=== PATIENT | male | born 1970 | race Caucasian/White ===

== ENCOUNTER 2018-06-25 11:05 | Emergency (ER) | payer OTHER ==
[~2018-06-25] VITALS: Ht 182.9 cm; Wt 113.4 kg
== END 2018-06-25 12:28 | disposition home or self-care (01) ==
LOC: ED 11:05
PROC: 0HQGXZZ Repair Left Hand Skin, External Approach (ICD-10-PCS; principal; 2018-06-25)
DX: S60.552A Superficial foreign body of left hand, initial encounter (principal); S61.412A Laceration without foreign body of left hand, initial encounter; W22.8XXA Striking against or struck by other objects, initial encounter; Z23 Encounter for immunization
CPT/HCPCS: 12002; 73130; 90471; 90715; 99283

== ENCOUNTER 2018-06-27 16:46 | Emergency (ER) | payer OTHER ==
[~2018-06-27] VITALS: Ht 182.9 cm; Wt 113.4 kg
[2018-06-27] MEDS ORDERED: AUGMENTIN 875-1 EACH PO (17:10)
== END 2018-06-27 17:16 | disposition home or self-care (01) ==
LOC: ED 16:46
DX: S61.412D Laceration without foreign body of left hand, subsequent encounter (principal)
CPT/HCPCS: 99282

== ENCOUNTER 2019-06-24 08:28 | Emergency (ER) | payer OTHER ==
[~2019-06-24] VITALS: Ht 182.9 cm; Wt 113.4 kg
[~2019-06-24 08:28] MED LIST: AUGMENTIN 875-1 EACH PO
[2019-06-24] MEDS ORDERED: KEFLEX500 MG PO (09:33)
[2019-06-24] MEDS ORDERED: NORCO 7.5-3251 EACH PO (09:33)
== END 2019-06-24 09:55 | disposition home or self-care (01) ==
LOC: ED 08:28
PROC: 0HQQXZZ Repair Finger Nail, External Approach (ICD-10-PCS; principal; 2019-06-24)
DX: S62.665A Nondisplaced fracture of distal phalanx of left ring finger, initial encounter for closed fracture (principal); S61.315A Laceration without foreign body of left ring finger with damage to nail, initial encounter; W23.0XXA Caught, crushed, jammed, or pinched between moving objects, initial encounter
CPT/HCPCS: 11760; 73140; 99283-25

== ENCOUNTER 2021-03-25 20:56 | Emergency (ER) | payer OTHER ==
[~2021-03-25] VITALS: Ht 182.9 cm; Wt 113.4 kg
[~2021-03-25 20:56] MED LIST changes: +KEFLEX500 MG PO; +NORCO 7.5-3251 EACH PO
[2021-03-25] MEDS ORDERED: HYDROCODON-ACE1 EA10 PO (22:13)
== END 2021-03-25 22:31 | disposition home or self-care (01) ==
LOC: ED 20:56
DX: S63.502A Unspecified sprain of left wrist, initial encounter (principal); W22.8XXA Striking against or struck by other objects, initial encounter
CPT/HCPCS: 29125; 73110; 99283-25

== ENCOUNTER 2022-03-14 07:13 | Day surgery (SDC) | payer OTHER ==
[~2022-03-14] VITALS: Ht 188 cm; Wt 104.3 kg
[~2022-03-14 07:13] MED LIST changes: +HYDROCODON-ACE1 EA10 PO
--- NOTE | 2022-03-14 09:36 | NUR ---
03/14/22 0936 Chasity Shay 0910 PATIENT DROWSY. AWAKES TO VERBAL STIMULI. PATIENT DENIES ANY PAIN OR NAUSEA. PATIENT BREATHING EQUAL AND UNLABORED ON 3 LITERS SIMPLE MASK. EDUCATED ON PASSING GAS.
--- NOTE | 2022-03-14 17:32 | OR ---
[facility] [address] [place], [place] [address] Signed DATE OF OPERATION: 03/14/2022 SURGEON: Sukumar Tinoco MD PREOPERATIVE DIAGNOSIS: Screening. POSTOPERATIVE DIAGNOSIS: Moderate internal hemorrhoids. PROCEDURE: Colonoscopy with hot biopsy. ESTIMATED BLOOD LOSS: None. INDICATIONS: Iesha is a 52-year-old gentleman asked to see me for his initial screening colonoscopy. He has no lower GI complaints. There is no family history of colon cancer or polyps. In the office, I gave him a pamphlet on colonoscopy. He understands the nature of the test. There is risk including, but not limited to gas bloating, crampy abdominal pain, bleeding, perforation requiring surgery, and missed diagnosis. We also discussed the need for IV conscious sedation. He had expressed understanding and wished to proceed. DESCRIPTION OF PROCEDURE: Iesha was taken into our endoscopy suite and placed in the left lateral decubitus position. He was given a total of 9 mg of Versed and 100 mcg of fentanyl to cover the case. A digital rectal exam was performed, not much in the way of external hemorrhoids. He had good sphincter tone. Mild induration to the prostate gland. The adult colonoscope had been introduced, advanced all around into the cecum under direct visualization of camera without difficulty. It took a little extra sedation in order to advance the scope. His prep was quite good. We could easily see the appendiceal orifice and ileocecal valve. Unfortunately, we could not capture pictures on our computer today. The scope was then slowly withdrawn. We saw no pathology throughout his entire colon or rectum. Upon retroflexion of scope, he does have a moderate-sized internal hemorrhoid columns. After this, the gas was suctioned out, the colonoscope removed. Iesha tolerated the procedure quite well. RECOMMENDATIONS: Iesha can return in 10 years for repeat screening colonoscopy. Electronically Signed By: SUKUMAR TINOCO MD 03/14/22 1875 PATIENT NAME: IESHA GARCIA OPERATIVE REPORT DATE OF : 68 REPORT #: [id number] PHYSICIAN: SUKUMAR TINOCO MD PCP: VANESSA JIN REPORT IS CONFIDENTIAL AND NOT TO BE RELEASED WITHOUT AUTHORIZATION [address] [address] Signed Sukumar Tinoco MD ALB/MODL /[id number] cc: Patient Chart MD Vanessa Acosta PA-C Copies: SUKUMAR TINOCO MD, ERIKA PAC ~ Electronically Signed By: SUKUMAR TINOCO MD 03/14/22 1732 PATIENT NAME: IESHA GARCIA OPERATIVE REPORT DATE OF : 68 REPORT #: [id number] PHYSICIAN: SUKUMAR TINOCO MD PCP: VANESSA JIN PAC REPORT IS CONFIDENTIAL AND NOT TO BE RELEASED WITHOUT AUTHORIZATION
== END 2022-03-14 10:05 | disposition home or self-care (01) ==
LOC: OPS 07:13 → DS 07:13 → OPS 08:15
PROVIDERS: ATTEND Colon & Rectal Surgery
PROC: 0DJD8ZZ Inspection of Lower Intestinal Tract, Via Natural or Artificial Opening Endoscopic (ICD-10-PCS; principal; 2022-03-14 08:15)
DX: Z12.11 Encounter for screening for malignant neoplasm of colon (principal); K64.8 Other hemorrhoids; J45.909 Unspecified asthma, uncomplicated; E78.5 Hyperlipidemia, unspecified; E66.9 Obesity, unspecified
CPT/HCPCS: 99153; G0500; J2250; J3010; J7121

== ENCOUNTER 2024-08-27 07:26 | Day surgery (SDC) | payer OTHER ==
[~2024-08-27] VITALS: Ht 182.9 cm; Wt 93.6 kg
[~2024-08-27 07:26] MED LIST changes: +CENTRUM ULTRA1 EAC1 PO; +IBLOOD GLUCOSE TEST STRIP 1 EA TEST VI PRN; +LACTATED RINGER'S 1,000 ML IV SCH; +LIDOCAINE HCL 1% 5 ML SDV INJ ONE; +LIDOCAINE HCL 4% 50 ML BTL TOP SCH; +MULTI VITAMIN1 EACH PO
--- NOTE | 2024-08-27 07:36 | NUR ---
PT NOT AVAILABLE FOR VISIT. PROVIDED PRAYER.
[2024-08-27 07:39] VITALS: BP 131/67
[2024-08-27] MEDS ORDERED: MIDAZOLAM HCL 5 MG/5 ML VIAL ONE (08:34)
[2024-08-27] MEDS ORDERED: fentaNYL citrate 100 MCG/2 ML VIAL ONE (08:34)
--- NOTE | 2024-08-27 09:20 | NUR ---
08/27/24 0920 Arina Arauz 0910 EASILY AWAKENED. DENIES C/O. REPS EVEN UNLABORED
[2024-08-27 09:32] VITALS: BP 110/67
--- NOTE | 2024-08-31 11:31 | OR ---
[facility] [address] [place], [place] [address] Signed DATE OF OPERATION: 08/27/2024 SURGEON: Rosmery Rojas MD PREOPERATIVE DIAGNOSES: 1. Cervical dysphagia. 2. Recent finding of Sjogren syndrome. 3. Upper gastrointestinal describing Schatzki ring, small hiatal hernia and prominent cricopharyngeal bar. POSTOPERATIVE DIAGNOSES: 1. Normal-appearing esophagus. 2. Mild antral gastritis and duodenitis. PROCEDURE: Esophagogastroduodenoscopy with biopsy. ANESTHESIA: Intravenous sedation; fentanyl 100 mcg and Versed 4 mg. INDICATION: This 54-year-old white man is a patient of Raul Serna and presented with cervical dysphagia. He had findings of extremely dry mouth, dry eyes, and other complaints suggestive of Sjogren syndrome. Sjogren serologic testing was undertaken which was markedly positive. A video esophagram was additionally performed, which showed no nicolas aspiration into the trachea, though some pooling of contrast in the area of the vallecula, a prominent cricopharyngeal bar and a small hiatal hernia with Schatzki's ring. He is admitted to undergo upper endoscopy at this time to assess for possible benefit of dilation, assess for other abnormalities including eosinophilic esophagitis that may contribute to his cervical dysphagia. He understands the risk of upper endoscopy including but not limited to bleeding, infection, and perforation and wished to proceed. FINDINGS: The vocal cords appeared normal, though there was indeed some pooling of secretions in the vallecula. Esophagus itself appeared normal. There was no evidence of stricture, Schneider's epithelium, neoplasm or felinization. The stomach itself was reasonably normal. Flap valve was reasonably intact. There was some prepyloric antral gastritis and bulbar duodenitis also. The 2nd and 3rd portions of the duodenum were normal. CLOtest was -15 minutes post procedure. Electronically Signed By: ROSMERY RJOAS MD 08/31/24 1131 PATIENT NAME: IESHA GARCIA OPERATIVE REPORT DATE OF : 68 REPORT #: [id number] PHYSICIAN: ROSMERY ROJAS MD PCP: RAUL SERNA PAC REPORT IS CONFIDENTIAL AND NOT TO BE RELEASED WITHOUT AUTHORIZATION [facility] [address] [place], [place] [address] Signed DESCRIPTION OF PROCEDURE: The patient was brought to the endoscopy suite and given lidocaine topical hypopharyngeal anesthesia and placed in lateral decubitus position. He was given intravenous sedation to the point of slurred speech and nystagmus with full cardiopulmonary monitoring. A bite block was placed. An Olympus video upper endoscope was passed in the hypopharynx. The vocal cords generally appeared normal. There was some pooling of secretions in the vallecula. Scope was advanced to the esophagus, throughout its length it appeared normal. The scope was passed into the stomach. There was a small amount of bile within it, but not much. There was no sign of diffuse gastritis. Antral motility was normal. Rugal folds were normal. The pylorus was mildly inflamed as was the prepyloric antrum. The scope was passed into the duodenum. The second and third portions were normal. The bulbar portion was mildly inflamed. There was no sign of ulceration. Biopsies were taken of the 2nd and 3rd portion as well as the bulbar portion. The scope was withdrawn and biopsies were taken of prepyloric antrum. CLOtest biopsies were obtained as well later and found to be -20 minutes post procedure. Retroflexed view showed a reasonably intact flap valve. Scope was withdrawn and biopsies taken of the distal esophagus and mid esophagus. The scope was carefully withdrawn and removed. CONCLUDING DIAGNOSES: No evidence of esophageal stricture. Cricopharyngeal bar not evident on endoscopic evaluation, but no associated stricture or neoplasm. PLAN: Given his underlying Sjogren syndrome and cervical dysphagia, we will recommend omeprazole 20 mg daily as well as prescription for XyiliMelts to be taken with meals. He should maintain a soft diet generally, intake frequent sips of water and with meals. We will see him back in the office in 4 to 6 weeks in follow up. MD NAUN Ann/AIDEL /[id number] Electronically Signed By: ROSMERY ROJAS MD 08/31/24 1131 PATIENT NAME: IESHA GARCIA OPERATIVE REPORT DATE OF : 68 REPORT #: [id number] PHYSICIAN: ROSMERY ROJAS MD PCP: RAUL SERNA PAC REPORT IS CONFIDENTIAL AND NOT TO BE RELEASED WITHOUT AUTHORIZATION [facility] [address] [place] [id number] Signed cc: Raul Serna PA-C Copies: RAUL SERNA ~ Electronically Signed By: ROSMERY ROJAS MD 08/31/24 1131 PATIENT NAME: GARCIAIESHA OPERATIVE REPORT DATE OF : 68 REPORT #: [id number] PHYSICIAN: ROSMERY ROJAS MD PCP: RAUL SERNA REPORT IS CONFIDENTIAL AND NOT TO BE RELEASED WITHOUT AUTHORIZATION
--- NOTE | 2024-08-31 18:48 | PATH ---
[facility] [address] [place], [place] [address] Signed SPECIMEN(S): A DUODENAL BIOPSY SPECIMEN(S): B DUODENAL BULB BIOPSY SPECIMEN(S): C ANTRUM BIOPSY SPECIMEN(S): D LOWER ESOPHAGEAL BIOPSY SPECIMEN(S): E MIDDLE ESOPHAGEAL BIOPSY SPECIMEN SOURCE: A. DUODENAL BIOPSY B. DUODENAL BULB BIOPSY C. ANTRUM BIOPSY D. LOWER ESOPHAGEAL BIOPSY E. MIDDLE ESOPHAGEAL BIOPSY CLINICAL HISTORY: Esophageal dysphagia, Sjogren's syndrome, mild antral gastritis. FINAL PATHOLOGIC DIAGNOSIS: A. Duodenal biopsy: - Benign duodenal mucosa with partial villous effacement and mildly increased epithelial lymphocytes, negative for specific diagnostic abnormality. - See Comment. B. Duodenal bulb biopsy: - Acute and chronic duodenitis with diffuse villous effacement. - Negative for dysplasia. C. Antrum biopsy: - Diffuse chronic gastritis with reactive features. - A Helicobacter pylori immunostain is negative for organisms. D. Lower esophageal biopsy: - Benign esophageal epithelium, negative for increased epithelial eosinophils. - Negative for glandular mucosa. E. Mid esophageal biopsy: - Benign esophageal epithelium, negative for increased epithelial eosinophils. - Negative for glandular mucosa. COMMENT: A. The duodenal biopsy reveals partial villous effacement and mildly increased epithelial lymphocytes. The differential diagnosis includes emerging or partially treated celiac disease, lymphocytic enteritis, other infections, and idiopathic. Clinical correlation is requested. JVR:alayna PATIENT NAME: IESHA GARCIA [facility]EN[facility] PATHOLOGY DATE OF : 68 REPORT #: [id number] PHYSICIAN: OMID HERNANDEZ PCP: RAUL JNI PAC REPORT IS CONFIDENTIAL AND NOT TO BE RELEASED WITHOUT AUTHORIZATION [facility] [address] [place], [place] [address] Signed MICROSCOPIC EXAMINATION: Histologic sections of all submitted blocks are examined by light microscopy. These findings, together with the gross examination, support the pathologic diagnosis. C. A Helicobacter pylori immunostain is performed with appropriate positive and negative controls on block C1 and is negative for organisms. JVR:alayna GROSS DESCRIPTION: A. The specimen, labeled and designated "Mayda, Omaira, 1." and designated on the requisition "duodenum biopsy," is received in formalin and consists of three addison soft tissue fragments that measure 0.2-0.3 cm in greatest dimension. The specimen is entirely submitted in (A1). B. The specimen, labeled and designated "Mayda, Omaira, 2." and designated on the requisition "duodenum bulb biopsy," is received in formalin and consists of three addison soft tissue fragments that measure 0.3-0.4 cm in greatest dimension. The specimen is entirely submitted in (B1). C. The specimen, labeled and designated "Mayda, Omaira, 3." and designated on the requisition "antrum/pylorus biopsy," is received in formalin and consists of two addison soft tissue fragments that measure 0.3 and 0.4 cm in greatest dimension. The specimen is entirely submitted in (C1). D. The specimen, labeled and designated "Mayda, Omaira, 4." and designated on the requisition "lower esophagus biopsy," is received in formalin and consists of four white-addison soft tissue fragments that measure 0.1-0.8 cm in greatest dimension. The specimen is entirely submitted in (D1). E. The specimen, labeled and designated "Mayda, Omaira, 5." and designated on the requisition "middle esophagus biopsy," is received in formalin and consists of two white-addison soft tissue fragments that measure 0.2 and 0.5 cm in greatest dimension. The specimen is entirely submitted in (E1). FB (under the direct supervision of a pathologist) The Gross Description was prepared using a voice recognition system. The report was reviewed for accuracy; however, sound-alike word errors, addition and/or deletions may occur. If there is any question about this report, please contact Client Services. ADDITIONAL NOTES: Immunohistochemical and/or in situ hybridization studies were performed on this PATIENT NAME: IESHA GARCIA PATHOLOGY DATE OF : 68 REPORT #: [id number] PHYSICIAN: OMID HERNANDEZ PCP: RAUL JIN PAC REPORT IS CONFIDENTIAL AND NOT TO BE RELEASED WITHOUT AUTHORIZATION [address] [address] Signed case with the appropriate positive controls that react as expected. This test was developed and its performance characteristics determined by [facility]. It has not been cleared or approved by the U.S. Food and Drug Administration. The FDA has determined that such clearance or approval is not necessary. This test is used for clinical purposes. It should not be regarded as investigational or for research. [facility] is certified under the Clinical Laboratory Improvement Amendments of 1988 (CLIA) as qualified to perform high complexity clinical laboratory testing. This assay has not been validated for specimens that have been decalcified. PERFORMING LABORATORY: Technical component was performed by [facility], [address] [place] [id number] (CLIA# [id number]). Professional interpretation was performed by [facility], [address] [place] [address], [place] [address] (CLIA#: [id number]). Diagnostician: Jamie Vargas MD Pathologist Electronically Signed 08/31/2024 Copies: ~ PATIENT NAME: IESHA GARCIA GLENYS PATHOLOGY DATE OF : 68 REPORT #: [id number] PHYSICIAN: OMID PATHOLOGY PCP: RAUL JIN PAC REPORT IS CONFIDENTIAL AND NOT TO BE RELEASED WITHOUT AUTHORIZATION
== END 2024-08-27 09:40 | disposition home or self-care (01) ==
LOC: DS 07:26 → OPS 07:26 → DS 13:15 → OPS 13:15
PROVIDERS: ATTEND Surgery
PROC: 0DB68ZX Excision of Stomach, Via Natural or Artificial Opening Endoscopic, Diagnostic (ICD-10-PCS; principal; 2024-08-27 09:00)
DX: K29.50 Unspecified chronic gastritis without bleeding (principal); K29.80 Duodenitis without bleeding; M35.00 Sjogren syndrome, unspecified
CPT/HCPCS: J2250; J3010; J7121

== ENCOUNTER 2025-09-10 15:26 | Emergency (ER) | payer OTHER ==
[~2025-09-10] VITALS: Ht 182.9 cm; Wt 98.9 kg
[~2025-09-10 15:26] MED LIST changes: -IBLOOD GLUCOSE TEST STRIP 1 EA TEST VI PRN; -LACTATED RINGER'S 1,000 ML IV SCH; -LIDOCAINE HCL 1% 5 ML SDV INJ ONE; -LIDOCAINE HCL 4% 50 ML BTL TOP SCH
[2025-09-10] MEDS ORDERED: CEPHALEXIN MONOHYDRATE 500 MG CAP PO ONE (20:00)
[2025-09-10] MEDS ORDERED: CEPHALEXIN500 M1 PO (20:12)
[2025-09-10 21:23] VITALS: BP 140/75
== END 2025-09-10 20:47 | disposition home or self-care (01) ==
LOC: ED 15:26
DX: S61.213A Laceration without foreign body of left middle finger without damage to nail, initial encounter (principal); J45.909 Unspecified asthma, uncomplicated; W23.0XXA Caught, crushed, jammed, or pinched between moving objects, initial encounter
CPT/HCPCS: 12002; 73130; 99283; A9270

== ENCOUNTER 2025-10-17 16:59 | Emergency (ER) | payer OTHER ==
[~2025-10-17] VITALS: Ht 182.9 cm; Wt 100.7 kg
[~2025-10-17 16:59] MED LIST changes: +CEPHALEXIN500 M1 PO
[2025-10-17] MEDS ORDERED: DIPHTH,PERTUSS(ACELL),TET VAC 0.5 ML SYRINGE IM ONE (20:30)
[2025-10-18] MEDS ORDERED: CEPHALEXIN500 M1 PO (00:11)
[2025-10-18] MEDS ORDERED: TRAMADOL HCL50 MG PO (00:11)
[2025-10-18] MEDS ORDERED: CEPHALEXIN MONOHYDRATE 500 MG HOME.PACK PO ONE (00:15)
[2025-10-18] MEDS ORDERED: TRAMADOL HCL 50 MG HOME.PACK PO ONE (00:15)
[2025-10-18 00:45] VITALS: BP 138/75
== END 2025-10-18 00:42 | disposition home or self-care (01) ==
LOC: ED 16:59
DX: S01.112A Laceration without foreign body of left eyelid and periocular area, initial encounter (principal); W18.30XA Fall on same level, unspecified, initial encounter; J45.909 Unspecified asthma, uncomplicated
CPT/HCPCS: 70486; 90471; 90715; 99283-25; A9270